=== PATIENT | female | born 1990 | race African-American/Black ===

== ENCOUNTER 2021-11-12 20:34 | Emergency (ER) | payer SELFPAY ==
[~2021-11-12] VITALS: Ht 170.2 cm; Wt 65.0 kg
[2021-11-12] MEDS ORDERED: ORPHENADRINE CITRATE 60 MG/2 ML VIAL. IV ONE (21:00)
[2021-11-12] MEDS ORDERED: KETOROLAC 30 MG/ML VIAL. IVP ONE (21:00)
--- NOTE | 2021-11-12 21:06 | PHYS DOC ---
Past Medical History Past Surgical History: No Surgical History Adult General Chief Complaint Chief Complaint: ABDOMINAL PAIN HPI HPI The patient is a 30-year-old female with unclear past medical history. She has never been to this facility before. She presents via EMS for evaluation of lower abdominal pain which she reports is "my cycle." States it started today. Very agitated, moaning and rolling and crawling around the floor in the examination room during initial evaluation, despite my attempts to verbally redirect her to lay in bed and allow me to examine her. Abdomen seems soft and nontender to palpation when I press on it but rest of physical examination could not be completed formally due to patient's inability to cooperate with my exam. Patient does not provide any additional history. Vital signs are appropriate aside from a degree of tachycardia. Review of Systems Review of Systems Review of systems not obtainable secondary to lack of patient cooperation. Current Medications Current Medications Current Medications Medications (Trade) Dose Ordered Sig/Rosina Start Time Stop Time Status Last Admin Dose Admin Haloperidol Lactate (Haldol Inj) 5 mg 1X ONCE 11/12/21 23:00 11/12/21 23:01 DC 11/12/21 22:49 5 MG Iohexol (Omnipaque 300 Mg/ml) 100 ml STK-MED ONCE 11/12/21 22:55 11/12/21 22:55 DC Ketorolac Tromethamine (Toradol 30mg Vial) 30 mg 1X ONCE 11/12/21 21:00 11/12/21 21:42 DC 11/12/21 21:09 30 MG Orphenadrine Citrate (Norflex) 60 mg 1X ONCE 11/12/21 21:00 11/12/21 21:42 DC 11/12/21 21:09 60 MG Sodium Chloride 1,000 ml @ 1,000 mls/hr 1X ONCE 11/12/21 22:00 11/12/21 22:59 DC Allergies Allergies Allergies Coded Allergies Type Severity Reaction Last Updated Verified No Known Drug Allergies 11/12/21 No Physical Exam Physical Exam 30-year-old female appearing nontoxic but agitated secondary to abdominal dis comfort. Head is normocephalic and atraumatic. Neck is supple. Oropharynx is moist. Unable to auscultate any breath sounds due to patient cooperation but appears to be oxygenating normally and respiratory excursion is normal. Unable to auscultate heart tones but peripheral perfusion appears to be normal. Slightly tachycardic, regular rhythm by palpation. Abdomen soft, nontender and nondistended. No pulsatile mass. No organomegaly. Skin is warm and dry without cyanosis, clubbing or edema. Psychiatrically, patient agitated. Neurologically, patient moves all extremities equally, is alert and appropriately responsive and no lateralizing deficits are seen. Current Patient Data Vital Signs Vital Signs Date Time Temp Pulse Resp B/P (MAP) Pulse Ox O2 Delivery O2 Flow Rate FiO2 11/12/21 20:50 98.4 135 24 100 Room Air 98.4 Lab Values Laboratory Tests Test 11/12/21 22:00 White Blood Count 6.4 x10^3/uL (4.0-11.0) Red Blood Count 4.10 x10^6/uL (3.50-5.40) Hemoglobin 11.5 g/dL (12.0-15.5) L Hematocrit 34.7 % (36.0-47.0) L Mean Corpuscular Volume 85 fL (79-100) Mean Corpuscular Hemoglobin 28 pg (25-35) Mean Corpuscular Hemoglobin Concent 33 g/dL (31-37) Red Cell Distribution Width 13.9 % (11.5-14.5) Platelet Count 222 x10^3/uL (140-400) Neutrophils (%) (Auto) 81 % (31-73) H Lymphocytes (%) (Auto) 12 % (24-48) L Monocytes (%) (Auto) 6 % (0-9) Eosinophils (%) (Auto) 0 % (0-3) Basophils (%) (Auto) 1 % (0-3) Neutrophils # (Auto) 5.2 x10^3/uL (1.8-7.7) Lymphocytes # (Auto) 0.8 x10^3/uL (1.0-4.8) L Monocytes # (Auto) 0.4 x10^3/uL (0.0-1.1) Eosinophils # (Auto) 0.0 x10^3/uL (0.0-0.7) Basophils # (Auto) 0.0 x10^3/uL (0.0-0.2) Sodium Level 144 mmol/L (136-145) Potassium Level 3.9 mmol/L (3.5-5.1) Chloride Level 108 mmol/L (98-107) H Carbon Dioxide Level 22 mmol/L (21-32) Anion Gap 14 (6-14) Blood Urea Nitrogen 9 mg/dL (7-20) Creatinine 1.0 mg/dL (0.6-1.0) Estimated GFR (Cockcroft-Gault) 78.2 BUN/Creatinine Ratio 9 (6-20) Glucose Level 105 mg/dL (70-99) H Calcium Level 9.1 mg/dL (8.5-10.1) Total Bilirubin 0.7 mg/dL (0.2-1.0) Aspartate Amino Transferase (AST) 20 U/L (15-37) Alanine Aminotransferase (ALT) 24 U/L (14-59) Alkaline Phosphatase 66 U/L (46-116) Total Protein 6.8 g/dL (6.4-8.2) Albumin 3.9 g/dL (3.4-5.0) Albumin/Globulin Ratio 1.3 (1.0-1.7) Lipase 49 U/L (73-393) L Serum Test, Qualitative Negative (NEG) Laboratory Tests 11/12/21 22:00 Laboratory Tests 11/12/21 22:00 EKG EKG [] Radiology/Procedures Radiology/Procedures CT abdomen and pelvis with contrast PQRS statement: CT scans at this facility use dose reduction including either automated exposure control, iterative reconstructions, and /or weight based radiation dosing via mA and kV modification when appropriate to reduce radiation dose to as low as reasonably achievable. HISTORY: Abdominal pain. Contrast: 75 mL Omnipaque 300 intravenous contrast FINDINGS: Small sliding hiatal hernia and gastric cardia. Lumbar scoliosis and lower lumbar disc disease. Liver, gallbladder, spleen, kidneys, adrenal glands and pancreas are normal. No bowel obstruction or inflammation. Appendix is negative. No abdominal fluid or adenopathy. Pelvis findings: There is abnormal expansion of the lower uterine endometrial canal with hypodensity with a thickness of 2.7 cm in sagittal image 44. Ovaries, bladder, rectum and bones are unremarkable. Mild low-density development of pelvic free fluid. IMPRESSION: 1. No acute process in the abdomen. The appendix is normal. 2. Abnormal hypodense expansion of the lower uterine endometrial canal with a thickness of 2.7 cm. This could represent endometrial hematoma versus abnormal endometrial mass from polyp, hyperplasia or carcinoma. This could be further evaluated with pelvic sonography. Electronically signed by: Jose M Reynolds MD (11/12/2021 11:38 PM) [facility] [place] SIGNED BY: JOSE M REYNOLDS MD DATE: 11/12/21 9952 Course & Med Decision Making Course & Med Decision Making 30-year-old female here with abdominal discomfort that she relates to her menstrual cycle having started earlier today. Very demonstrative and agitated, rolling around on the floor. Has never been here before so I do not know if there is a history of similar behavior. States she is from [place] and is visiting. Will check labs and urine as noted and will give Toradol and Norflex and will then reevaluate. We will try to get the patient to calm down for reevaluation to determine the need for any imaging or other further testing. 0011: Patient resting comfortably on serial reassessments. Did not respond to Toradol and Norflex but after a dose of Haldol is resting very comfortably, no longer agitated and complaining of severe lower abdominal pain. Labs entirely unremarkable. Patient has refused multiple times to give us a urine sample. CT imaging with endocervical abnormalities as noted. Pelvic sonography recommended for further evaluation. Ordered pelvic ultrasound and notified by the instructor adjunct surgical technician that patient is refusing the study. To bedside to discuss with her. She states "I am on my cycle and I do not feel comfortable getting that ultrasound right now." Counseled patient at length that pelvic ultrasound is important for us to further explore the abnormality seen on CT imaging, as well as to ensure that her severe lower abdominal pain upon presentation is not due to any life threat. Counseled her, and she understands and is able to restate in her own words, that she is at risk for decompensation, permanent disability, loss of current lifestyle and even in electing to decline to give us a urine sample and in electing to decline indicated pelvic ultrasonography. Counseled her that if she changes her mind and would like to be further evaluated for her abdominal pain, that she may return at any time and we will be happy to take care of her. Patient is alert and oriented x4, appropriately interactive and communicative, not clinically intoxicated, and not suicidal. Has capacity to refuse indicated testing and treatment if she so chooses. Patient is feeling dramatically better and verbalizes that she is ready to go home. She will be leaving the hospital against advice because she is declining indicated testing, including urinalysis and pelvic ultrasound. AMA paperwork signed and placed in the patient chart. Sanjayon Disclaimer Sanjayon Disclaimer This electronic medical record was generated, in whole or in part, using a voice recognition dictation system. Departure Departure Impression: Primary Impression: Lower abdominal pain Disposition: LEFT AGAINST MEDICAL ADVICE Condition: STABLE Referrals: JULES KOLB MD Patient Instructions: Pelvic Pain, Female Additional Instructions: As we have discussed with you at length, you are choosing to leave the hospital against advice and to decline necessary ultrasound and urine testing today. This places you at risk for decompensation, permanent disability, loss of current lifestyle and even as we have discussed with you. If you change your mind and would like to be further taken care of, you are welcome to return at any time and we will be more than happy to take care of you. Return to the emergency department right away for worsening symptoms of any kind or with any other new symptoms of concern. We are providing a referral to one of our gynecologists, Dr. Kolb, for your pelvic pain. You should follow-up with her in the next few days or if your travels bring you back home to [place] before then, you should follow-up with a ferris wheel operator of your choice at home within the next few days. ABELARDO MARTINEZ MD Nov 12, 2021 21:06
[2021-11-12] MEDS ORDERED: IV NORMAL SALINE 1000ML BAG 1,000 ML IV ONE (22:00)
[2021-11-12 22:08] LABS: BASO % 1 % (0-3); EOS % 0 % (0-3); HEMATOCRIT 34.7 % (36.0-47.0); HEMOGLOBIN 11.5 g/dL (12.0-15.5); LYMPH # 0.8 x10^3/uL (1.0-4.8); LYMPH % 12 % (24-48); MEAN CORPUSCULAR HEMOGLOBIN 28 pg (25-35); MEAN CORPUSCULAR HGB CONC 33 g/dL (31-37); MEAN CORPUSCULAR VOLUME 85 fL (79-100); MONO # 0.4 x10^3/uL (0.0-1.1); MONO % 6 % (0-9); NEUT # 5.2 x10^3/uL (1.8-7.7); NEUT % 81 % (31-73); PLATELET COUNT 222 x10^3/uL (140-400); RED CELL DISTRIBUTION WIDTH 13.9 % (11.5-14.5); WHITE BLOOD COUNT 6.4 x10^3/uL (4.0-11.0)
[2021-11-12 22:21] LABS: CALCIUM 9.1 mg/dL (8.5-10.1); GFR 78.2; POTASSIUM 3.9 mmol/L (3.5-5.1)
[2021-11-12 22:22] LABS: PREG TEST PT QUAL NEGATIVE (NEG)
[2021-11-12 22:27] LABS: ALBUMIN 3.9 g/dL (3.4-5.0); ALBUMIN/GLOBULIN RATIO 1.3 (1.0-1.7); TOTAL BILIRUBIN 0.7 mg/dL (0.2-1.0); TOTAL PROTEIN 6.8 g/dL (6.4-8.2)
[2021-11-12] MEDS ORDERED: IOHEXOL 300 MG/ML 100ML VIAL. ONE (22:55)
[2021-11-12] MEDS ORDERED: HALOPERIDOL LACTATE 5 MG/ML VIAL. IVP ONE (23:00)
--- NOTE | 2021-11-12 23:41 | RAD ---
CT abdomen and pelvis with contrast PQRS statement: CT scans at this facility use dose reduction including either automated exposure cont rol, iterative reconstructions, and /or weight based radiation dosing via mA and kV modification when appropriate to reduce radiation dose to as low as reasonably achievable. HISTORY: Abdominal pain. Contrast: 75 mL Omnipaque 300 intravenous contrast FINDINGS: Small sliding hiatal hernia and gastric cardia. Lumbar scoliosis and lower lumbar disc dise ase. Liver, gallbladder, spleen, kidneys, adrenal glands and pancreas are normal. No bowel obstructio n or inflammation. Appendix is negative. No abdominal fluid or adenopathy. Pelvis findings: There is abnormal expansion of the lower uterine endometrial canal with hypodensity with a thickness of 2.7 cm in sagittal image 44. Ovaries, bladder, rectum and bones are unremarkable. Mild low-density development of pelvic free fluid. IMPRESSION: 1. No acute process in the abdomen. The appendix is normal. 2. Abnormal hypodense expansion of the lower uterine endometrial canal with a thickness of 2.7 cm. Th is could represent endometrial hematoma versus abnormal endometrial mass from polyp, hyperplasia or c arcinoma. This could be further evaluated with pelvic sonography. Electronically signed by: Camron Bowers MD (11/12/2021 11:38 PM) [facility]
[2021-11-13] MEDS ORDERED: IOHEXOL 300 MG/ML 100ML VIAL. ONE (00:18)
[2021-11-13 03:50] VITALS: BP 128/78
== END 2021-11-13 00:19 | disposition left against medical advice (07) ==
LOC: ER 20:34
DX: R10.30 Lower abdominal pain, unspecified (principal); R45.1 Restlessness and agitation; R00.0 Tachycardia, unspecified
CPT/HCPCS: 36415; 74177; 80053; 83690; 84703; 85025; 96374; 96375; 99285; J1630; J1885; J2360